=== PATIENT | male | born 1995 | race American Indian/Alaskan Native ===

== ENCOUNTER 2020-03-16 15:14 | Emergency (ER) | payer SELFPAY ==
--- NOTE | 2020-03-16 15:16 | Emergency Department Report ---
Blank Doc - Documentation Documentation: 24-year-old male that presents with a dog bite to left thigh area. Unsure of rabbis vaccines. This initial assessment/diagnostic orders/clinical plan/treatment(s) is/are subject to change based on patient's health status, clinical progression and re- assessment by fellow clinical providers in the ED. Further treatment and workup at subsequent clinical providers discretion. Patient/guardians urged not to elope from the ED as their condition may be serious if not clinically assessed and managed. Initial orders include: 1- Patient sent to [facility] for further evaluation and treatment 2- RN to call animal control.
[2020-03-16 15:20] VITALS: BP 133/89
[2020-03-16] MEDS ORDERED: RABIES IMMUNE GLOBULIN P/F 300 UNIT/ML INJ 5 ML IM ONE (15:21)
[2020-03-16] MEDS ORDERED: RABIES VACCINE, HUMAN DIPLOID/PF 2.5 UNIT/ML VIAL IM ONE (15:21)
[2020-03-16] MEDS ORDERED: DIPHtheria,PERTUSSIS(ACELL),TETANUS VACCINE/PF 0.5 ML VIAL IM ONE (17:23)
--- NOTE | 2020-03-16 17:44 | Emergency Department Report ---
ED Animal Bite HPI - General Chief Complaint: Animal Bite Stated Complaint: LFT THIGH DOG BITE Time Seen by Provider: 03/16/20 15:15 Source: patient Mode of arrival: Ambulatory Limitations: No Limitations - History of Present Illness Initial Comments: The patient was evaluated in the emergency department for symptoms described in the history of present illness. He/she was evaluated in the context of the global COVID-19 pandemic, which necessitated consideration that the patient might be at risk for infection with the virus that causes COVID-19. In stitutional protocols and algorithms that pertain to the evaluation of patients at risk for COVID-19 are in a state of rapid change based on information released by regulatory bodies including the CDC and federal and state organizations. These policies and algorithms were followed during the patient's care in the emergency department. Please note that these policies, procedures and recommendations changed on a rapid basis. 24-year-old -[place] male presents to the emergency room for dog bite to his left upper thigh 2 days ago while he was at his aunt's house. Patient comes in requesting shots. Patient reports his pain is a 4 out of 10. He is not aware of when his last tetanus shot. Not aware of the dog's vaccine status. He denies any shortness of breath chest pain altered mental status or discharge from thigh. Denies any swelling of his thigh. Complaint: animal bite - Related Data Previous Rx's Medication Instructions Recorded Last Taken Type Amoxicillin/Potassium Clav 1 each PO Q12H 10 Days #20 tablet 03/16/20 Unknown Rx [Augmentin 875-125 Tablet] Allergies Allergy/AdvReac Type Severity Reaction Status Date / Time No Known Allergies Allergy Verified 03/16/20 15:27 ED Review of Systems ROS: Stated complaint: LFT THIGH DOG BITE Other details as noted in HPI ED Past Medical Hx - Past Medical History Previous Medical History?: No - Surgical History Past Surgical History?: No - Social History Smoking Status: Current Every Day Smoker Substance Use Type: None - Medications Home Medications: Home Medications Medication Instructions Recorded Confirmed Last Taken Type Amoxicillin/Potassium Clav 1 each PO Q12H 10 Days #20 tablet 03/16/20 Unknown Rx [Augmentin 875-125 Tablet] ED Physical Exam - General Limitations: No Limitations ED Course Vital Signs 03/16/20 15:18 Temperature 98.8 F Pulse Rate 83 Respiratory 18 Rate Blood Pressure 133/89 O2 Sat by Pulse 98 Oximetry Critical care attestation.: If time is entered above; I have spent that time in minutes in the direct care of this critically ill patient, excluding procedure time. ED Disposition Clinical Impression: Dog bite of left thigh Qualifiers: Encounter type: initial encounter Qualified Code(s): S71.152A - Open bite, left thigh, initial encounter; W54.0XXA - Bitten by dog, initial encounter Disposition: - TO HOME OR SELFCARE Is pt being admited?: No Does the pt Need Aspirin: No Condition: Stable Additional Instructions: You have received your first dose of rabies vaccine and your immunoglobulin. You need to follow-up at the health department that is listed on your purple paper to get your next dose of rabies vaccination which should be 03/18/2020 and then 03/24/20 and your final dose on 04/02/2020. This can only be administered by the health department not by this hospital. You can take Tylenol or ibuprofen for pain. Keep your wound clean and dry. Complete your antibiotics as prescribed. Prescriptions: Amoxicillin/Potassium Clav [Augmentin 875-125 Tablet] 1 each PO Q12H 10 Days #20 tablet Forms: Work/School Release Form(ED)
== END 2020-03-16 17:50 | disposition home or self-care (01) ==
LOC: ED 15:14
DX: S71.152A Open bite, left thigh, initial encounter (principal); F17.200 Nicotine dependence, unspecified, uncomplicated; Z79.899 Other long term (current) drug therapy; W54.0XXA Bitten by dog, initial encounter; Y93.89 Activity, other specified; Y92.89 Other specified places as the place of occurrence of the external cause; Y99.8 Other external cause status
CPT/HCPCS: 90375; 90471; 90675; 90715; 96372; 99282